=== PATIENT | female | born 1935 | race Caucasian/White ===

== ENCOUNTER 2016-09-28 22:02 | Emergency (ER) | payer MEDICARE ==
[~2016-09-28 22:02] MED LIST: BAYER81 MG PO; BENADRYL25 MG/TAB PO; CALCIUM; CALTRATE PO; CALTRATE-600/VI1 TAB; CENTRUM SILVER1 TA; CENTRUM SILVER1 TA PO; DELTASONE10 MG PO; EPIPEN0.3 MG/0.1 IM; ESTRADIOL1 MG; FLEXERIL10 MG PO; HYDROCODONE; LEVOBUNOLOL; NORCO 5/325 TAB1 TAB; NORCO 5/325 TAB1 TAB PO; PERCOCET 5/3251 TAB PO; SYNTHROID75 MCG PO; TYLENOL ARTHRI650 MG; TYLENOL ARTHRI650 MG PO; TYLENOL500 MG; ZETIA10 MG PO; ZOFRAN4 MG PO
[2016-09-28] MEDS ORDERED: OXYCODONE-ACET1 EAC3 PO (23:22)
== END 2016-09-28 23:24 ==
LOC: EDMED 22:02
PROC: 2W3CX1Z Immobilization of Right Lower Arm using Splint (ICD-10-PCS; principal; 2016-09-28)
DX: S62.001A Unspecified fracture of navicular [scaphoid] bone of right wrist, initial encounter for closed fracture (principal); M19.90 Unspecified osteoarthritis, unspecified site; Z96.652 Presence of left artificial knee joint; X58.XXXA Exposure to other specified factors, initial encounter; Y92.019 Unspecified place in single-family (private) house as the place of occurrence of the external cause